=== PATIENT | female | born 2000 | race Two or more races ===

== ENCOUNTER 2024-03-02 10:16 | Emergency (ER) | payer MEDICAID ==
[~2024-03-02] VITALS: Ht 162.6 cm; Wt 50.0 kg
[2024-03-02 10:25] VITALS: O2SAT 99
[2024-03-02 11:06] LABS: CLARITY URINE CLEAR (CLEAR); COLOR URINE YELLOW (YELLOW); GLUCOSE URINE 1+ (NEGATIVE); KETONES URINE 4+ (NEGATIVE); LEUKOCYTE ESTERASE URINE NEGATIVE (NEGATIVE); NITRITE URINE NEGATIVE (NEGATIVE); OCCULT BLOOD URINE 1+ (NEGATIVE); PROTEIN URINE 2+ (NEGATIVE); SPECIFIC GRAVITY URINE 1.032 (1.005-1.030)
[2024-03-02 11:07] LABS: DIFFERENTIAL COMMENT 1; HEMATOCRIT. 44.4 % (36.0-48.0); HEMOGLOBIN. 15.1 g/dL (12.0-16.0); MEAN CORPUSCULAR HGB CONC 34.1 g/dL (31.0-37.0); MEAN CORPUSCULAR VOLUME 91.1 fL (81.0-99.0); MEAN PLATELET VOLUME 6.7 fl (7.4-10.4); PLATELET 451 x1000/uL (130-400); RED BLOOD CELL COUNT 4.87 mill/uL (4.2-5.4); RED CELL DISTRIBUTION WIDTH 12.7 % (11.6-14.6)
[2024-03-02 11:11] LABS: CHLORIDE 99 mEq/L (98-107); SODIUM 135 mEq/L (136-145)
[2024-03-02 11:13] LABS: CALCIUM 10.1 mg/dL (8.7-10.4); CARBON DIOXIDE 23 mEq/L (21-32)
[2024-03-02 11:15] LABS: HCG SCREEN NEGATIVE
[2024-03-02 11:17] LABS: CREATININE 0.7 mg/dL (0.6-1.0)
[2024-03-02 11:18] LABS: GLUCOSE 172 mg/dL (70-105); UREA NITROGEN BLOOD 6 mg/dL (9-23)
[2024-03-02 11:19] LABS: ALANINE AMINOTRANSFERASE 12 IU/L (10-49)
[2024-03-02 11:20] LABS: ALBUMIN 5.4 g/dL (3.2-4.8); ASPARTATE AMINOTRANSFERASE 17 IU/L (<34); BILIRUBIN DIRECT 0.3 mg/dL (<=3.0); BILIRUBIN TOTAL 0.9 mg/dL (0.1-1.0); PROTEIN TOTAL 8.4 g/dL (6.0-8.3)
[2024-03-02 11:21] LABS: BACTERIA URINE 1+; SQUAMOUS EPITHELIAL CELL URINE 3+ /lpf (RARE/1+); WBC URINE 0-2 /hpf (0-2); YEAST URINE NONE SEEN
[2024-03-02] MEDS ORDERED: DICYCLOMINE 10 MG/5 ML ORAL SYR PO STA (11:33)
[2024-03-02] MEDS: ONDANSETRON HCL 4MG/2ML INJ IV ONE (11:42)
[2024-03-02] MEDS: MAGNESIUM/ALUMINUM HYDROXIDE/SIMETHICONE 30ML UDC PO STA (11:43)
[2024-03-02] MEDS: POTASSIUM CHLORIDE 20MEQ TABLET SR PO ONE (11:43)
[2024-03-02] MEDS: DICYCLOMINE HCL 10MG CAPSULE PO NR (11:44)
[2024-03-02] MEDS: SODIUM CHLORIDE 0.9% 1,000 ML IV ONE (11:44)
[2024-03-02 12:55] VITALS: BP 112/82; PULSE 101; RESP 16; TEMP 98.2
[2024-03-02 15:18] LABS: PLATELET ESTIMATE INCREASED
== END 2024-03-02 13:05 | disposition home or self-care (01) ==
LOC: ER 10:16
DX: T67.5XXA Heat exhaustion, unspecified, initial encounter (principal); X58.XXXA Exposure to other specified factors, initial encounter; E86.0 Dehydration; E87.6 Hypokalemia; Y93.89 Activity, other specified; Y92.89 Other specified places as the place of occurrence of the external cause; Y99.8 Other external cause status
CPT/HCPCS: 99284; 96374; 80076; 80048; 81003; 84703; 83690; 85025; 36415; J2405; J7030